=== PATIENT | female | born 1980 | race Caucasian/White ===

== ENCOUNTER 2018-01-26 20:16 | Emergency (ER) | payer BC, OTHER ==
[2018-01-26] MEDS: predniSONE 20 MG TAB PO (21:14)
[2018-01-26] MEDS: ALBUTEROL 0.5% (NEB) 2.5 MG/0.5 ML AMP INH (21:24)
[2018-01-26] MEDS: IPRATROPIUM (NEB) 0.5 MG/2.5 ML AMP INH (21:25)
== END 2018-01-26 22:48 | disposition home or self-care (01) ==
LOC: FTE 20:16
DX: J45.901 Unspecified asthma with (acute) exacerbation (principal)
CPT/HCPCS: 94644; 99284-25